=== PATIENT | female | born 1950 | race Caucasian/White ===

== ENCOUNTER 2017-09-22 06:17 | Day surgery (SDC) | payer MEDICARE, MEDICAID ==
[2017-09-21 17:45] LABS: HEMATOCRIT 44.3 % (36.0-48.0); HEMOGLOBIN 15.5 g/dL (12-16); MCH 30.9 pg (26.0-34.0); MCV 88.2 fL (80.0-100.0); MEAN PLATELET VOLUME 11.1 fL (7.4-10.4); RBC 5.02 10x6/uL (4.00-5.40); RDW 12.9 % (11.5-14.5); WBC 12.3 10x3/uL (4.8-10.8)
[2017-09-21 18:00] LABS: CALC OSMOLALITY 279 mosm/kg (275-300); CALCIUM 9.4 mg/dL (8.5-10.1); CARBON DIOXIDE 28.4 mmol/L (21.0-32.0); CHLORIDE - SERUM 99 mmol/L (98-107); CREATININE - SERUM 0.8 mg/dL (0.6-1.3); GLUCOSE 211 mg/dL (74-106); POTASSIUM - SERUM 3.7 mmol/L (3.5-5.1); SODIUM 136 mmol/L (136-145); UREA NITROGEN 17 mg/dL (7-18); eGFR NON AFRICAN AMERICAN 76 mL/min (90-120)
[~2017-09-22] VITALS: Ht 167.6 cm; Wt 129.3 kg
[~2017-09-22 06:17] MED LIST: BAYER CHEWABLE81 MG PO; BIOTIN5 MG PO; BLACK COHOSH160 MG PO; DIOVAN HCT 160/1 TAB PO; FLAXSEED OIL1000 MG PO; LOTEMAX 0.5% OPH5 ML EACH EYE; NOVOLIN 70/30 110 ML; [UNRECOGNIZED DRUG - OTHER] PO
[2017-09-22 06:59] VITALS: BP 135/70; Ht 167.6 cm; Wt 129.3 kg
== END 2017-09-22 12:05 | disposition home or self-care (01) ==
LOC: D.OPS 06:17 → D.PAN 08:00 → D.OPS 12:05
PROVIDERS: Anesthesiology
DX: S66.126A Laceration of flexor muscle, fascia and tendon of right little finger at wrist and hand level, initial encounter (principal); W45.8XXA Other foreign body or object entering through skin, initial encounter; E11.9 Type 2 diabetes mellitus without complications; I10 Essential (primary) hypertension; Z01.812 Encounter for preprocedural laboratory examination